=== PATIENT | female | born 1990 | race Caucasian/White ===

== ENCOUNTER 2017-02-01 12:19 | Outpatient (CLI) | payer SELFPAY ==
[~2017-02-01] VITALS: Ht 157.5 cm; Wt 80.9 kg
[~2017-02-01 12:19] MED LIST: IBUP-1222 PO; OXYC-302 PO
[2017-02-01 12:32] VITALS: BP 122/70
[2017-02-01] MEDS ORDERED: PREN1TAB60 PO (12:57)
== END 2017-02-01 13:35 | disposition home or self-care (01) ==
LOC: LDOP 12:19
PROVIDERS: ATTEND Obstetrics & Gynecology
DX: O46.92 Antepartum hemorrhage, unspecified, second trimester (principal); O26.852 Spotting complicating pregnancy, second trimester; Z3A.21 21 weeks gestation of pregnancy
CPT/HCPCS: 59025; 99211; G0463

== ENCOUNTER 2017-06-04 09:22 | Inpatient (IN) | payer MEDICAID ==
[~2017-06-04] VITALS: Ht 157.5 cm; Wt 82.0 kg
[~2017-06-04 09:22] MED LIST changes: +PREN1TAB60 PO
[2017-06-06] MEDS ORDERED: OXYTOCIN 30U/ 0.9% NaCL 500ML 500 ML IV PRN (05:13)
[2017-06-06] MEDS ORDERED: D5%-LACTATED RINGERS 1,000 ML IV SCH (05:13)
[2017-06-06] MEDS ORDERED: OXYTOCIN 30U/ 0.9% NaCL 500ML 500 ML IV ONE (05:13)
[2017-06-06] MEDS ORDERED: NEWBORN KIT ONE (05:20)
[2017-06-06] MEDS ORDERED: OXYTOCIN 30U/ 0.9% NaCL 500ML 500 ML ONE (05:20)
[2017-06-06] MEDS: LACTATED RINGERS 1,000 ML IV SCH ×2 (05:27→09:36)
[2017-06-06] MEDS ORDERED: FENTANYL PF 100 MCG/2ML IV PRN (05:30)
[2017-06-06] MEDS ORDERED: ONDANSETRON 2MG/ML, 2ML IVPush PRN (05:30)
[2017-06-06] MEDS ORDERED: METOCLOPRAMIDE 5 MG/ML, 2ML IVPush PRN (05:30)
[2017-06-06] MEDS ORDERED: SODIUM CITRATE/CITRIC ACID 30 ML UDC PO PRN (05:30)
[2017-06-06] MEDS ORDERED: FENTANYL PF 100 MCG/2ML IVPush PRN (05:30)
[2017-06-06] MEDS ORDERED: CALCIUM CARBONATE 500 MG TAB.CHEW PO PRN (05:30)
[2017-06-06 06:08] LABS: HEMATOCRIT 35.2 % (34.6-47.8); HEMOGLOBIN 11.8 g/dL (11.7-16.4); WHITE BLOOD COUNT 7.4 x10^3/uL (3.4-10)
[2017-06-06] MEDS ORDERED: MISOPROSTOL 200 MCG TABLET ONE (08:04)
[2017-06-06] MEDS ORDERED: LIDOCAINE 1%, 20ML ONE (08:04)
[2017-06-06] MEDS ORDERED: FENTANYL PF 100 MCG/2ML ONE (09:31)
[2017-06-06] MEDS ORDERED: LIDOCAINE/PF 1.5%-EPI 1:200K, 30ML ONE (09:32)
[2017-06-06] MEDS ORDERED: FENTANYL/BUPIV./NS/PF 0 ML EPIDCONT ONE (09:32)
[2017-06-06] MEDS: OXYTOCIN 30U/ 0.9% NaCL 500ML 500 ML IV SCH ×2 (09:56→19:56)
[2017-06-06] MEDS ORDERED: ONDANSETRON 2MG/ML, 2ML IV PRN (10:00)
[2017-06-06] MEDS ORDERED: OXYcodone/APAP 5/325MG TABLET PO PRN (10:00)
[2017-06-06] MEDS ORDERED: MISOPROSTOL 200 MCG TABLET PR PRN (10:00)
[2017-06-06] MEDS ORDERED: DOCUSATE 100 MG CAPSULE PO PRN (10:00)
[2017-06-06] MEDS ORDERED: ACETAMINOPHEN 325 MG TABLET PO PRN (10:00)
[2017-06-06] MEDS ORDERED: IBUPROFEN 600 MG TABLET ONE (10:22)
[2017-06-06] MEDS: IBUPROFEN 600 MG TABLET PO PRN ×2 (10:24→19:13)
[2017-06-06 12:13] VITALS: BP 118/67
[2017-06-06 12:15] VITALS: BP 125/64
[2017-06-06 16:50] VITALS: BP 130/79
[2017-06-06 18:03] LABS: HEMATOCRIT 33.6 % (34.6-47.8); HEMOGLOBIN 11.1 g/dL (11.7-16.4); WHITE BLOOD COUNT 10.8 x10^3/uL (3.4-10)
[2017-06-06 19:25] VITALS: BP 130/78
[2017-06-07] MEDS ORDERED: OXYC-302 PO (00:31)
[2017-06-07] MEDS ORDERED: IBUP-1222 PO (00:32)
[2017-06-07 02:05] VITALS: BP 126/75
[2017-06-07] MEDS: IBUPROFEN 600 MG TABLET PO PRN (02:15)
[2017-06-07] MEDS: OXYTOCIN 30U/ 0.9% NaCL 500ML 500 ML IV SCH (05:56)
[2017-06-07 06:55] VITALS: BP 125/80
[2017-06-07] MEDS ORDERED: PRENATAL VIT/IRON/FA 1 EACH TABLET ONE (06:56)
[2017-06-07] MEDS ORDERED: PRENATAL VIT/IRON/FA 1 EACH TABLET PO SCH (09:00)
== END 2017-06-07 10:15 | disposition home or self-care (01) | DRG 775 ==
LOC: LDIP 06-06 05:09 → 2NW 06-06 11:26
PROVIDERS: ADMIT Obstetrics & Gynecology; ATTEND Obstetrics & Gynecology
PROC: 10E0XZZ Delivery of Products of Conception, External Approach (ICD-10-PCS; principal; 2017-06-06)
DX: O80 Encounter for full-term uncomplicated delivery (principal); Z37.0 Single live birth; Z3A.39 39 weeks gestation of pregnancy
CPT/HCPCS: 36415; 81001; 85025; 86850; 86900; J3010; J2590; J7120